=== PATIENT | female | born 2005 | race Two or more races ===

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

== ENCOUNTER → 2025-01-09 | Outpatient (BNVA) | payer MEDICAID, SELFPAY | END | disposition home or self-care (01) | PROVIDERS: PCP Nurse Practitioner Primary Care; Referring Provider Nurse Practitioner Primary Care; Visit Provider Nurse Practitioner Primary Care | DX: Z71.2 Person consulting for explanation of examination or test findings (principal); E03.8 Other specified hypothyroidism; E78.1 Pure hyperglyceridemia; E66.812 Obesity, class 2 | CPT/HCPCS: 99212 ==